=== PATIENT | female | born 1975 | race Caucasian/White ===

== ENCOUNTER 2018-12-18 22:58 | Emergency (ER) | payer MEDICAID ==
[2018-12-18 23:10] VITALS: BP 144/90
--- NOTE | 2018-12-18 23:14 | EDM.PDOC ---
ED HPI GENERAL MEDICAL PROBLEM - General Chief Complaint: ENT Problem Stated Complaint: SORE THROAT Time Seen by Provider: 12/18/18 23:10 Source of Information: Reports: Patient History Limitations: Reports: No Limitations - History of Present Illness INITIAL COMMENTS - FREE TEXT/NARRATIVE: 43-year-old female whose son has had strep recently, she has a mild sore throat and wants to be tested before she goes to work tomorrow. Onset: Gradual Duration: Day(s): (Symptoms for 2 days) Associated Symptoms: Denies: Fever/Chills, Nausea/Vomiting, Shortness of Breath throat Pain Score (Numeric/FACES): 3 - Related Data Allergies Allergy/AdvReac Type Severity Reaction Status Date / Time Sulfa (Sulfonamide Allergy Severe Cannot Verified 12/18/18 23:08 Antibiotics) Remember amoxicillin [Amoxicillin] Allergy Cannot Verified 12/18/18 23:08 Remember cephalexin monohydrate Allergy Cannot Verified 12/18/18 23:08 [From Keflex] Remember Penicillins Allergy Cannot Verified 12/18/18 23:08 Remember Home Meds: Home Meds NK [No Known Home Meds] 12/18/18 [History] Past Medical History - Past Health History Medical/Surgical History: Denies Medical/Surgical History ED ROS ENT - Review of Systems Review Of Systems: See Below Constitutional: Denies: Fever, Chills HEENT: Reports: Throat Pain Respiratory: Denies: Shortness of Breath, Cough Cardiovascular: Denies: Chest Pain GI/Abdominal: Denies: Abdominal Pain, Nausea, Vomiting Skin: Reports: No Symptoms Neurological: Reports: No Symptoms ED EXAM, ENT - Physical Exam Exam: See Below Exam Limited By: No Limitations General Appearance: Alert, No Apparent Distress Mouth/Throat: Pharyngeal Erythema, Uvular Edema, Other (Also uvular erythema) Head: Atraumatic Neck: No: Lymphadenopathy (R), Lymphadenopathy (L) Respiratory/Chest: No Respiratory Distress Course - Vital Signs Last Recorded V/S: Last Vital Signs Temp 97.6 F 12/18/18 23:20 Pulse 95 12/18/18 23:20 Resp 16 12/18/18 23:20 BP 144/90 H 12/18/18 23:20 Pulse Ox 98 12/18/18 23:20 - Orders/Labs/Meds Orders: Active Orders 24 hr Category Date Time Status CULTURE STREP A CONFIRMATION [RM] Routine Lab 12/18/18 23:13 Results STREP SCRN A RAPID W CULT CONF [RM] Routine Lab 12/18/18 23:13 Results - Re-Assessments/Exams Free Text/Narrative Re-Assessment/Exam: 12/19/18 00:16 Rapid strep was negative. No treatment necessary at this time but the patient will be informed if the culture result is positive. Departure - Departure Time of Disposition: 23:35 Disposition: Home, Self-Care 01 Condition: Good Clinical Impression: Pharyngitis Qualifiers: Pharyngitis/tonsillitis etiology: unspecified etiology Qualified Code(s): J02.9 - Acute pharyngitis, unspecified - Discharge Information Instructions: Pharyngitis, [id number] Referrals: PCP,None [Primary Care Provider] - Forms: ED Department Discharge Care Plan Goals: Stay hydrated, increase diet and activity as tolerated. Consider rechecking in 3 -4 days if not improving satisfactorily. Ibuprofen or lozenges may help with pain. - My Orders Last 24 Hours: My Active Orders 12/18/18 23:13 CULTURE STREP A CONFIRMATION [RM] Routine STREP SCRN A RAPID W CULT CONF [RM] Routine - Assessment/Plan Last 24 Hours: My Active Orders 12/18/18 23:13 CULTURE STREP A CONFIRMATION [RM] Routine STREP SCRN A RAPID W CULT CONF [RM] Routine
== END 2018-12-18 23:35 | disposition home or self-care (01) ==
LOC: JP.ED 22:58
DX: J02.9 Acute pharyngitis, unspecified (principal); Z20.818 Contact with and (suspected) exposure to other bacterial communicable diseases; Z88.2 Allergy status to sulfonamides; Z88.1 Allergy status to other antibiotic agents; Z88.0 Allergy status to penicillin
CPT/HCPCS: 87081; 87430; 99283

== ENCOUNTER 2022-12-03 09:45 | Emergency (ER) | payer MEDICAID ==
[2022-12-03] MEDS ORDERED: Sodium Chloride 0.9% 10 ML Syringe FLUSH PRN ×2 (10:17→10:37)
[2022-12-03] MEDS ORDERED: HYDROmorphone 0.5 MG/0.5 ML Syringe IVPUSH ONE (10:21)
[2022-12-03] MEDS ORDERED: Sodium Chloride 0.9% 1,000 ML IV ONE (10:21)
[2022-12-03] MEDS ORDERED: Clindamycin in 0.9 % Sod Chlor 600 MG in Premix Bag 1 BAG IV ONE ×2 (10:22)
[2022-12-03] MEDS ORDERED: Clindamycin in 0.9 % Sod Chlor 300 MG in Premix Bag 1 BAG IV ONE ×2 (10:25)
[2022-12-03] MEDS ORDERED: Clindamycin Phosphate in D5W 900 MG in Premix Bag 1 BAG IV ONE ×2 (10:32)
[2022-12-03] MEDS ORDERED: Sodium Chloride 0.9% 50 ML IV ONE (10:37)
[2022-12-03] MEDS ORDERED: Iopamidol 612 MG/ML 100 ML Bottle IV PRN (10:37)
[2022-12-03 11:10] VITALS: BP 147/108; PULSE 111
== END 2022-12-03 12:18 | disposition home or self-care (01) ==
LOC: JP.ED 09:45
DX: L03.211 Cellulitis of face (principal); K04.7 Periapical abscess without sinus; R25.2 Cramp and spasm; Z88.2 Allergy status to sulfonamides; Z88.0 Allergy status to penicillin; Z88.1 Allergy status to other antibiotic agents; Z72.0 Tobacco use; Z20.822 Contact with and (suspected) exposure to COVID-19
CPT/HCPCS: 36415; 70491; 80048; 85025; 86140; 87040; 87635; 96365; 96375; 99284; J1170; J3490; J7030; Q9967; 99283; U0002

== ENCOUNTER 2023-02-11 16:53 | Emergency (ER) | payer MEDICAID ==
[2023-02-11 17:08] VITALS: PULSE 118
[2023-02-11] MEDS ORDERED: Sodium Chloride 0.9% 10 ML Syringe FLUSH PRN (18:37)
[2023-02-11] MEDS ORDERED: Ondansetron 4 MG/2 ML SDV IVPUSH ONE (18:38)
[2023-02-11] MEDS ORDERED: Pantoprazole 40 MG Vial IVPUSH ONE (18:47)
[2023-02-11 18:49] LABS: BASOPHILS ABSOLUTE AUTO 0.06 K/uL (0.00-0.10); BASOPHILS PERCENT AUTO 0.6 % (0.1-1.3); HEMATOCRIT 51.2 % (34.3-46.0); HEMOGLOBIN 16.9 g/dL (11.2-15.5); IMMATURE GRAN ABSOLUTE AUTO 0.04 K/uL (0.00-0.23); IMMATURE GRAN PERCENT AUTO 0.4 % (0.0-0.7); LYMPHOCYTES ABSOLUTE AUTO 3.88 K/uL (0.8-3.3); LYMPHOCYTES PERCENT AUTO 38.8 % (11.4-47.7); MEAN CORPUSCULAR HEMOGLOBIN 27.2 pg (31.6-35.5); MEAN CORPUSCULAR VOLUME 82.4 fL (81.4-99.0); MONOCYTES ABSOLUTE AUTO 0.62 K/uL (0.20-0.90); MONOCYTES PERCENT AUTO 6.2 % (3.3-12.6); NEUTROPHILS ABSOLUTE AUTO 5.31 K/uL (1.0-7.6); PLATELET COUNT,PLT 224 K/uL (130-375); RED BLOOD CELL COUNT 6.21 M/uL (3.77-5.24)
[2023-02-11 19:08] LABS: INR 1.1; PROTHROMBIN TIME 10.7 sec (9.2-10.6); PTT,PARTIAL THROMBOPLSTIN TIME 23.3 sec (21.8-27.3)
[2023-02-11 19:13] LABS: A/G RATIO 0.9 (1.2-2.2); ALANINE AMINOTRANSFERASE,ALT 53 U/L (12-78); ALBUMIN 2.9 g/dL (3.4-5.0); ALKALINE PHOSPHATASE 84 U/L (46-116); ASPARTATE AMNIOTRANSFERASE,AST 45 U/L (15-37); BILIRUBIN TOTAL 0.7 mg/dL (0.2-1.0); BLOOD UREA NITROGEN,BUN 18 mg/dL (7-18); CALCIUM 8.5 mg/dL (8.5-10.1); CARBON DIOXIDE,CO2 26 mmol/L (21-32); CHLORIDE,CL 105 mmol/L (100-108); CREATININE 1.1 mg/dL (0.6-1.0); ESTIMATED GFR 63 mL/min (>60); GLUCOSE RANDOM 101 mg/dL (74-106); POTASSIUM,K 4.1 mmol/L (3.6-5.2); PROTEIN TOTAL,TP 6.3 g/dL (6.4-8.2); SODIUM,NA 137 mmol/L (140-148)
[2023-02-11 19:14] LABS: ANION GAP 10.1 mmol/L (5.0-14.0)
[2023-02-11 19:41] LABS: TROPONIN I HIGH SENSITIVITY 69.7 pg/mL (<=60.3)
[2023-02-11] MEDS ORDERED: Furosemide 20 MG Tab PO ONE (19:55)
[2023-02-11] MEDS ORDERED: Lisinopril 2.5 MG Tab PO SCH (20:00)
[2023-02-11] MEDS ORDERED: Lisinopril 5 MG Tab ONE (20:07)
[2023-02-11 20:11] VITALS: BP 143/108
== END 2023-02-11 21:52 | disposition home or self-care (01) ==
LOC: JP.ED 16:53
DX: R06.02 Shortness of breath (principal); R60.0 Localized edema; R79.1 Abnormal coagulation profile; R74.8 Abnormal levels of other serum enzymes; E88.09 Other disorders of plasma-protein metabolism, not elsewhere classified; R03.0 Elevated blood-pressure reading, without diagnosis of hypertension; F17.210 Nicotine dependence, cigarettes, uncomplicated; Z88.0 Allergy status to penicillin; Z88.2 Allergy status to sulfonamides; Z88.1 Allergy status to other antibiotic agents; Z79.899 Other long term (current) drug therapy; Z20.822 Contact with and (suspected) exposure to COVID-19
CPT/HCPCS: 36415; 71045; 80053; 83880; 84145; 84443; 84484; 85025; 85379; 85610; 85730; 87635; 93005; 93971; 96374; 96375; 99284; A9270; C9113; J2405; J3490; U0002

== ENCOUNTER 2023-04-29 19:13 | Inpatient (IN) | payer MEDICAID ==
[2023-04-29 20:10] LABS: BASOPHILS ABSOLUTE AUTO 0.07 K/uL (0.00-0.10); BASOPHILS PERCENT AUTO 0.6 % (0.1-1.3); EOSINOPHILS PERCENT AUTO 0.9 % (0.0-5.4); HEMATOCRIT 55.6 % (34.3-46.0); IMMATURE GRAN ABSOLUTE AUTO 0.04 K/uL (0.00-0.23); IMMATURE GRAN PERCENT AUTO 0.3 % (0.0-0.7); LYMPHOCYTES ABSOLUTE AUTO 3.39 K/uL (0.8-3.3); LYMPHOCYTES PERCENT AUTO 28.8 % (11.4-47.7); MEAN CORPUSCULAR HEMOGLOBIN 28.3 pg (31.6-35.5); MEAN CORPUSCULAR HGB CONC 33.3 g/dL (31.6-35.5); MEAN CORPUSCULAR VOLUME 85.1 fL (81.4-99.0); MONOCYTES ABSOLUTE AUTO 0.72 K/uL (0.20-0.90); MONOCYTES PERCENT AUTO 6.1 % (3.3-12.6); NEUTROPHILS ABSOLUTE AUTO 7.44 K/uL (1.0-7.6); NEUTROPHILS PERCENT AUTO 63.3 % (40.0-78.1); PLATELET COUNT,PLT 206 K/uL (130-375); RED BLOOD CELL COUNT 6.53 M/uL (3.77-5.24); WHITE BLOOD CELL COUNT,WBC 11.8 K/uL (3.2-11.0)
[2023-04-29 20:19] LABS: HEMOGLOBIN 18.5 g/dL (11.2-15.5)
[2023-04-29] MEDS ORDERED: Metolazone 2.5 MG Tab PO ONE (20:33)
[2023-04-29 20:38] LABS: A/G RATIO 0.8 (1.2-2.2); ALANINE AMINOTRANSFERASE,ALT 46 U/L (12-78); ALBUMIN 2.8 g/dL (3.4-5.0); ALKALINE PHOSPHATASE 107 U/L (46-116); ASPARTATE AMNIOTRANSFERASE,AST 45 U/L (15-37); BILIRUBIN TOTAL 2.4 mg/dL (0.2-1.0); BLOOD UREA NITROGEN,BUN 11 mg/dL (7-18); CALCIUM 8.4 mg/dL (8.5-10.1); CARBON DIOXIDE,CO2 22 mmol/L (21-32); CHLORIDE,CL 104 mmol/L (100-108); EST CRCL DRUG DOSING (CG) 63.25 mL/min; ESTIMATED GFR 70 mL/min (>60); GLUCOSE RANDOM 143 mg/dL (74-106); POTASSIUM,K 4.4 mmol/L (3.6-5.2); PRO B-TYPE NATRIUR PEPT,BNPPRO 4516 pg/mL (5-125); PROTEIN TOTAL,TP 6.2 g/dL (6.4-8.2); SODIUM,NA 138 mmol/L (140-148); TROPONIN I HIGH SENSITIVITY 15.8 pg/mL (<=60.3)
[2023-04-29 20:39] LABS: ANION GAP 16.4 mmol/L (5.0-14.0)
[2023-04-29] MEDS ORDERED: Bumetanide 2.5 MG/10 ML MDV IVPUSH SCH (20:45)
[2023-04-29] MEDS: Carvedilol 3.125 MG Tab PO SCH (21:11)
[2023-04-29] MEDS: Sacubitril/Valsartan 24 MG-26 MG Tab PO SCH (21:12)
[2023-04-29 22:43] LABS: BILIRUBIN,URINE NEGATIVE (NEGATIVE); COLOR,URINE YELLOW (YELLOW); GLUCOSE,URINE NEGATIVE (NEGATIVE); KETONES,URINE NEGATIVE (NEGATIVE); LEUKOCYTE ESTERASE,URINE TRACE (NEGATIVE); NITRITE,URINE NEGATIVE (NEGATIVE); OCCULT BLOOD,URINE TRACE-LYSED (NEGATIVE); PH,URINE 5.5 (5.0-8.0); PROTEIN,URINE NEGATIVE (NEGATIVE); UROBILINOGEN,URINE 0.2 EU/dL (0.2-1.0)
[2023-04-29 22:47] LABS: THC SCREEN,URINE 50 NG/ML PRESUMPTIVE POSITIVE (NEGATIVE)
[2023-04-29 22:48] LABS: AMORPHOUS SEDIMENT,URINE NOT SEEN; AMPHETAMINES SCREEN, URINE NEGATIVE (NEGATIVE); APPEARANCE,URINE SLIGHTLY CLOUDY (CLEAR); BACTERIA,URINE MANY; BARBITURATE SCREEN,URINE NEGATIVE (NEGATIVE); BENZODIAZEPINES SCREEN,URINE NEGATIVE (NEGATIVE); EPITHELIAL CELLS,URINE RARE; METHADONE SCREEN, URINE NEGATIVE (NEGATIVE); METHAMPHETAMINES SCREEN, URINE NEGATIVE (NEGATIVE); MUCUS,URINE NOT SEEN; OXYCODONE SCREEN,URINE NEGATIVE (NEGATIVE); PROPOXYPHENE SCREEN,URINE NEGATIVE (NEGATIVE); RBC,URINE 0-5 (0-5)
[2023-04-29] MEDS ORDERED: Acetaminophen 325 MG Tab PO PRN (23:04)
[2023-04-29] MEDS ORDERED: Morphine 2 MG/ML SYRINGE IVPUSH PRN (23:04)
[2023-04-29] MEDS ORDERED: Ondansetron 4 MG Tab.DIS PO PRN (23:04)
[2023-04-29] MEDS ORDERED: oxyCODONE 5 MG Tab PO PRN (23:04)
[2023-04-29] MEDS ORDERED: Bisacodyl 5 MG Tab PO PRN (23:04)
[2023-04-29] MEDS ORDERED: Ondansetron 4 MG/2 ML SDV IV PRN (23:04)
[2023-04-29] MEDS ORDERED: Naloxone 0.4 MG/ML SDV IVPUSH PRN (23:04)
[2023-04-29] MEDS ORDERED: Sodium Chloride 0.9% 10 ML Syringe FLUSH PRN (23:04)
[2023-04-29] MEDS ORDERED: Docusate Sodium 100 MG Cap PO PRN (23:04)
[2023-04-29 23:12] LABS: LYME AB IgG Negative (Negative)
[2023-04-29 23:15] LABS: LYME AB IgM Negative (Negative)
[2023-04-30 04:40] LABS: BASOPHILS ABSOLUTE AUTO 0.09 K/uL (0.00-0.10); BASOPHILS PERCENT AUTO 0.7 % (0.1-1.3); EOSINOPHILS ABSOLUTE AUTO 0.19 K/uL (0.00-0.40); EOSINOPHILS PERCENT AUTO 1.5 % (0.0-5.4); HEMATOCRIT 55.5 % (34.3-46.0); IMMATURE GRAN ABSOLUTE AUTO 0.03 K/uL (0.00-0.23); IMMATURE GRAN PERCENT AUTO 0.2 % (0.0-0.7); LYMPHOCYTES ABSOLUTE AUTO 4.65 K/uL (0.8-3.3); MEAN CORPUSCULAR HEMOGLOBIN 28.2 pg (31.6-35.5); MEAN CORPUSCULAR HGB CONC 33.3 g/dL (31.6-35.5); MEAN CORPUSCULAR VOLUME 84.7 fL (81.4-99.0); MONOCYTES ABSOLUTE AUTO 0.93 K/uL (0.20-0.90); MONOCYTES PERCENT AUTO 7.2 % (3.3-12.6); NEUTROPHILS ABSOLUTE AUTO 7.03 K/uL (1.0-7.6); NEUTROPHILS PERCENT AUTO 54.4 % (40.0-78.1); PLATELET COUNT,PLT 205 K/uL (130-375); RED BLOOD CELL COUNT 6.55 M/uL (3.77-5.24); WHITE BLOOD CELL COUNT,WBC 12.9 K/uL (3.2-11.0)
[2023-04-30 05:01] LABS: A/G RATIO 0.8 (1.2-2.2); ALANINE AMINOTRANSFERASE,ALT 37 U/L (12-78); ALBUMIN 2.5 g/dL (3.4-5.0); ALKALINE PHOSPHATASE 93 U/L (46-116); ANION GAP 7.9 mmol/L (5.0-14.0); ASPARTATE AMNIOTRANSFERASE,AST 35 U/L (15-37); BILIRUBIN TOTAL 2.5 mg/dL (0.2-1.0); BLOOD UREA NITROGEN,BUN 10 mg/dL (7-18); CALCIUM 8.4 mg/dL (8.5-10.1); CARBON DIOXIDE,CO2 29 mmol/L (21-32); CHLORIDE,CL 103 mmol/L (100-108); CREATININE 0.9 mg/dL (0.6-1.0); EST CRCL DRUG DOSING (CG) 70.28 mL/min; ESTIMATED GFR 80 mL/min (>60); GLUCOSE RANDOM 97 mg/dL (74-106); POTASSIUM,K 3.9 mmol/L (3.6-5.2); PROTEIN TOTAL,TP 5.6 g/dL (6.4-8.2); SODIUM,NA 140 mmol/L (140-148)
[2023-04-30 05:27] LABS: HEMOGLOBIN 18.5 g/dL (11.2-15.5)
[2023-04-30 08:36] LABS: INR 1.2; PROTHROMBIN TIME 12.1 sec (9.2-10.6)
[2023-04-30] MEDS: Carvedilol 3.125 MG Tab PO SCH ×2 (09:59→21:04)
[2023-04-30] MEDS: Aspirin 81 MG Tab.Chew PO SCH (09:59)
[2023-04-30] MEDS: Bumetanide 1 MG/4 ML MDV IVPUSH SCH ×2 (09:59→21:04)
[2023-04-30] MEDS: Sacubitril/Valsartan 24 MG-26 MG Tab PO SCH ×2 (09:59→21:04)
[2023-04-30] MEDS: Pantoprazole 40 MG Vial IV SCH (09:59)
[2023-04-30 17:23] LABS: CALCIUM 8.2 mg/dL (8.5-10.1); CREATININE 1.1 mg/dL (0.6-1.0); EST CRCL DRUG DOSING (CG) 57.5 mL/min
[2023-05-01 04:20] LABS: BASOPHILS ABSOLUTE AUTO 0.08 K/uL (0.00-0.10); BASOPHILS PERCENT AUTO 0.7 % (0.1-1.3); EOSINOPHILS ABSOLUTE AUTO 0.21 K/uL (0.00-0.40); EOSINOPHILS PERCENT AUTO 1.8 % (0.0-5.4); HEMATOCRIT 56.3 % (34.3-46.0); IMMATURE GRAN ABSOLUTE AUTO 0.03 K/uL (0.00-0.23); IMMATURE GRAN PERCENT AUTO 0.3 % (0.0-0.7); LYMPHOCYTES PERCENT AUTO 38.6 % (11.4-47.7); MEAN CORPUSCULAR HEMOGLOBIN 27.7 pg (31.6-35.5); MEAN CORPUSCULAR VOLUME 83.9 fL (81.4-99.0); MONOCYTES ABSOLUTE AUTO 0.99 K/uL (0.20-0.90); MONOCYTES PERCENT AUTO 8.5 % (3.3-12.6); NEUTROPHILS ABSOLUTE AUTO 5.85 K/uL (1.0-7.6); NEUTROPHILS PERCENT AUTO 50.1 % (40.0-78.1); PLATELET COUNT,PLT 195 K/uL (130-375); RED BLOOD CELL COUNT 6.71 M/uL (3.77-5.24); WHITE BLOOD CELL COUNT,WBC 11.7 K/uL (3.2-11.0)
[2023-05-01 04:35] LABS: CREATININE 1.2 mg/dL (0.6-1.0); EST CRCL DRUG DOSING (CG) 52.71 mL/min; POTASSIUM,K 3.4 mmol/L (3.6-5.2)
[2023-05-01 05:22] LABS: ANION GAP 10.4 mmol/L (5.0-14.0)
[2023-05-01 06:37] LABS: HEMOGLOBIN 18.6 g/dL (11.2-15.5)
[2023-05-01] MEDS ORDERED: Potassium Chloride 20 MEQ Tab.ER PO ONE ×2 (09:00→12:00)
[2023-05-01] MEDS: Bumetanide 1 MG/4 ML MDV IVPUSH SCH (09:16)
[2023-05-01] MEDS: Pantoprazole 40 MG Vial IV SCH (09:16)
[2023-05-01] MEDS: Aspirin 81 MG Tab.Chew PO SCH (09:17)
[2023-05-01] MEDS: Sacubitril/Valsartan 24 MG-26 MG Tab PO SCH ×2 (09:17→20:08)
[2023-05-01] MEDS: Carvedilol 3.125 MG Tab PO SCH ×2 (10:19→20:11)
[2023-05-01] MEDS ORDERED: guaiFENesin/Dextromethorphan 100-10 MG/5 ML Soln 10 ML Cup PO PRN (10:23)
[2023-05-02 04:39] LABS: BASOPHILS ABSOLUTE AUTO 0.09 K/uL (0.00-0.10); BASOPHILS PERCENT AUTO 0.7 % (0.1-1.3); EOSINOPHILS PERCENT AUTO 1.7 % (0.0-5.4); HEMATOCRIT 56.5 % (34.3-46.0); IMMATURE GRAN ABSOLUTE AUTO 0.03 K/uL (0.00-0.23); IMMATURE GRAN PERCENT AUTO 0.2 % (0.0-0.7); LYMPHOCYTES ABSOLUTE AUTO 4.61 K/uL (0.8-3.3); LYMPHOCYTES PERCENT AUTO 38.3 % (11.4-47.7); MEAN CORPUSCULAR HEMOGLOBIN 27.9 pg (31.6-35.5); MEAN CORPUSCULAR HGB CONC 33.1 g/dL (31.6-35.5); MEAN CORPUSCULAR VOLUME 84.3 fL (81.4-99.0); MONOCYTES ABSOLUTE AUTO 0.98 K/uL (0.20-0.90); MONOCYTES PERCENT AUTO 8.1 % (3.3-12.6); NEUTROPHILS ABSOLUTE AUTO 6.12 K/uL (1.0-7.6); PLATELET COUNT,PLT 215 K/uL (130-375)
[2023-05-02 04:55] LABS: EST CRCL DRUG DOSING (CG) 63.25 mL/min; POTASSIUM,K 3.8 mmol/L (3.6-5.2)
[2023-05-02 05:06] LABS: HEMOGLOBIN 18.7 g/dL (11.2-15.5)
[2023-05-02 05:07] LABS: ANION GAP 10.8 mmol/L (5.0-14.0)
[2023-05-02] MEDS: Pantoprazole 40 MG Vial IV SCH (09:30)
[2023-05-02 11:11] VITALS: BP 96/62; PULSE 100
[2023-05-02] MEDS: Sacubitril/Valsartan 24 MG-26 MG Tab PO SCH (11:48)
[2023-05-02] MEDS: Aspirin 81 MG Tab.Chew PO SCH (11:49)
[2023-05-02] MEDS: Carvedilol 3.125 MG Tab PO SCH (11:49)
[2023-05-02] MEDS: Bumetanide 1 MG/4 ML MDV IVPUSH SCH (12:35)
== END 2023-05-02 12:45 | disposition home or self-care (01) | DRG 291 ==
LOC: JP.ED 19:13 → JP.MS 22:50
PROVIDERS: ADMIT Hospitalist; ATTEND Hospitalist
DX: I11.0 Hypertensive heart disease with heart failure (principal); I50.23 Acute on chronic systolic (congestive) heart failure; I50.82 Biventricular heart failure; F17.210 Nicotine dependence, cigarettes, uncomplicated; I27.20 Pulmonary hypertension, unspecified; R21 Rash and other nonspecific skin eruption; Z20.822 Contact with and (suspected) exposure to COVID-19; I07.1 Rheumatic tricuspid insufficiency; Z86.16 Personal history of COVID-19; Z88.2 Allergy status to sulfonamides; Z88.1 Allergy status to other antibiotic agents; Z88.8 Allergy status to other drugs, medicaments and biological substances; Z88.0 Allergy status to penicillin; Z87.440 Personal history of urinary (tract) infections; Z87.81 Personal history of (healed) traumatic fracture; Z98.51 Tubal ligation status
CPT/HCPCS: 36415; 71046; 71046-26; 80048; 80053; 80305-QW; 81001; 83880; 84484; 85025; 85027; 85610; 86618; 93005; 93306; 96374; 99222; 99232; 99238; 99285-25; A9270-GY; C9113; J3490; U0002

== ENCOUNTER 2023-05-03 01:13 | Emergency (ER) | payer MEDICAID ==
[2023-05-03] MEDS ORDERED: Sodium Chloride 0.9% 10 ML Syringe FLUSH PRN (01:44)
[2023-05-03] MEDS ORDERED: Ondansetron 4 MG/2 ML SDV IVPUSH ONE ×2 (01:46→01:50)
[2023-05-03 01:51] LABS: BASOPHILS ABSOLUTE AUTO 0.08 K/uL (0.00-0.10); BASOPHILS PERCENT AUTO 0.5 % (0.1-1.3); EOSINOPHILS PERCENT AUTO 0.7 % (0.0-5.4); HEMATOCRIT 59.8 % (34.3-46.0); IMMATURE GRAN ABSOLUTE AUTO 0.08 K/uL (0.00-0.23); IMMATURE GRAN PERCENT AUTO 0.5 % (0.0-0.7); LYMPHOCYTES PERCENT AUTO 22.1 % (11.4-47.7); MEAN CORPUSCULAR HEMOGLOBIN 28.3 pg (31.6-35.5); MEAN CORPUSCULAR HGB CONC 33.1 g/dL (31.6-35.5); MEAN CORPUSCULAR VOLUME 85.6 fL (81.4-99.0); MONOCYTES ABSOLUTE AUTO 0.68 K/uL (0.20-0.90); MONOCYTES PERCENT AUTO 4.6 % (3.3-12.6); NEUTROPHILS ABSOLUTE AUTO 10.66 K/uL (1.0-7.6); NEUTROPHILS PERCENT AUTO 71.6 % (40.0-78.1); PLATELET COUNT,PLT 237 K/uL (130-375); RED BLOOD CELL COUNT 6.99 M/uL (3.77-5.24); WHITE BLOOD CELL COUNT,WBC 14.9 K/uL (3.2-11.0)
[2023-05-03 01:53] LABS: HEMOGLOBIN 19.8 g/dL (11.2-15.5)
[2023-05-03] MEDS ORDERED: Sodium Chloride 0.9% 1,000 ML IV SCH (02:00)
[2023-05-03 02:12] LABS: A/G RATIO 0.9 (1.2-2.2); ALANINE AMINOTRANSFERASE,ALT 31 U/L (12-78); ALBUMIN 3.2 g/dL (3.4-5.0); ALKALINE PHOSPHATASE 93 U/L (46-116); ASPARTATE AMNIOTRANSFERASE,AST 31 U/L (15-37); BILIRUBIN TOTAL 2.1 mg/dL (0.2-1.0); BLOOD UREA NITROGEN,BUN 23 mg/dL (7-18); CALCIUM 8.6 mg/dL (8.5-10.1); CARBON DIOXIDE,CO2 31 mmol/L (21-32); CHLORIDE,CL 97 mmol/L (100-108); CREATININE 1.5 mg/dL (0.6-1.0); EST CRCL DRUG DOSING (CG) 42.17 mL/min; ESTIMATED GFR 43 mL/min (>60); GLUCOSE RANDOM 146 mg/dL (74-106); POTASSIUM,K 4.9 mmol/L (3.6-5.2); PROTEIN TOTAL,TP 6.8 g/dL (6.4-8.2); SODIUM,NA 136 mmol/L (140-148)
[2023-05-03 02:13] LABS: ANION GAP 12.9 mmol/L (5.0-14.0)
[2023-05-03] MEDS ORDERED: Iopamidol 755 Mg/ML 100 ML Bottle IV ONE (02:45)
[2023-05-03] MEDS ORDERED: Sodium Chloride 0.9% 75 ML IV SCH (02:45)
[2023-05-03] MEDS ORDERED: Carvedilol 3.125 MG Tab PO SCH ×2 (06:45→09:00)
[2023-05-03] MEDS ORDERED: Furosemide 20 MG Tab PO SCH ×2 (06:45→09:00)
[2023-05-03] MEDS ORDERED: Sacubitril/Valsartan 24 MG-26 MG Tab PO SCH ×2 (06:45→09:00)
[2023-05-03 07:22] LABS: IRON,FE 103 ug/dL (50-170); PERCENT FE SATURATION 27 % (20-55); TOTAL IRON BINDING CAPACITY 375 ug/dl (250-450)
[2023-05-03 09:10] VITALS: BP 106/80; PULSE 99
== END 2023-05-03 10:22 | disposition home or self-care (01) ==
LOC: JP.ED 01:13
DX: I27.20 Pulmonary hypertension, unspecified (principal); I11.0 Hypertensive heart disease with heart failure; I50.20 Unspecified systolic (congestive) heart failure; F17.200 Nicotine dependence, unspecified, uncomplicated; Z79.899 Other long term (current) drug therapy; Z88.0 Allergy status to penicillin; Z88.2 Allergy status to sulfonamides; Z88.1 Allergy status to other antibiotic agents; Z88.8 Allergy status to other drugs, medicaments and biological substances; Z20.822 Contact with and (suspected) exposure to COVID-19
CPT/HCPCS: 36415; 71045; 71275; 80053; 82728; 83550; 83605; 83880; 84484; 85025; 85379; 87635; 93005; 96361; 96374; 99284; A9270; J2405; J3490; J7030; Q9967; U0002

== ENCOUNTER 2023-09-16 14:18 | Emergency (ER) | payer MEDICAID ==
[2023-09-16 14:45] LABS: BASE EXCESS ARTERIAL -4.7 mm/L; BICARBONATE,ARTERIAL 17.1 mmol/L (22.0-26.0); METHEMOGLOBIN 0.8 %; O2 SATURATION ARTERIAL 94.8 % (95.0-98.0); OXYHEMOGLOBIN 92.1 %; PCO2 ARTERIAL 26.1 mmHg (35.0-42.0); PO2 ARTERIAL 79.5 mmHg (75.0-100.0); TOTAL HEMOGLOBIN 19.5 g/dL (12.0-16.0)
[2023-09-16] MEDS: Ondansetron 4 MG/2 ML SDV IVPUSH ONE (14:55)
[2023-09-16 15:00] LABS: BASOPHILS ABSOLUTE AUTO 0.06 K/uL (0.00-0.10); BASOPHILS PERCENT AUTO 0.4 % (0.1-1.3); EOSINOPHILS ABSOLUTE AUTO 0.05 K/uL (0.00-0.40); EOSINOPHILS PERCENT AUTO 0.4 % (0.0-5.4); HEMATOCRIT 58.8 % (34.3-46.0); IMMATURE GRAN ABSOLUTE AUTO 0.07 K/uL (0.00-0.23); IMMATURE GRAN PERCENT AUTO 0.5 % (0.0-0.7); LYMPHOCYTES ABSOLUTE AUTO 3.07 K/uL (0.8-3.3); LYMPHOCYTES PERCENT AUTO 21.9 % (11.4-47.7); MEAN CORPUSCULAR HEMOGLOBIN 28.6 pg (31.6-35.5); MEAN CORPUSCULAR HGB CONC 32.8 g/dL (31.6-35.5); MONOCYTES ABSOLUTE AUTO 0.81 K/uL (0.20-0.90); MONOCYTES PERCENT AUTO 5.8 % (3.3-12.6); NEUTROPHILS ABSOLUTE AUTO 9.94 K/uL (1.0-7.6); PLATELET COUNT,PLT 211 K/uL (130-375); RED BLOOD CELL COUNT 6.76 M/uL (3.77-5.24)
[2023-09-16 15:02] LABS: HEMOGLOBIN 19.3 g/dL (11.2-15.5)
[2023-09-16 15:16] LABS: A/G RATIO 0.9 (1.2-2.2); ALANINE AMINOTRANSFERASE,ALT 36 U/L (12-78); ALBUMIN 2.9 g/dL (3.4-5.0); ALKALINE PHOSPHATASE 101 U/L (46-116); ASPARTATE AMNIOTRANSFERASE,AST 58 U/L (15-37); BILIRUBIN DIRECT 0.74 mg/dL (0.0-0.2); BILIRUBIN INDIRECT 3.26; BLOOD UREA NITROGEN,BUN 22 mg/dL (7-18); CALCIUM 9.2 mg/dL (8.5-10.1); CARBON DIOXIDE,CO2 19 mmol/L (21-32); CHLORIDE,CL 104 mmol/L (100-108); ESTIMATED GFR 70 mL/min (>60); GLUCOSE RANDOM 90 mg/dL (74-106); MAGNESIUM 1.7 mg/dL (1.8-2.4); PHOSPHORUS 4.8 mg/dL (2.5-4.9); POTASSIUM,K 4.6 mmol/L (3.6-5.2); PRO B-TYPE NATRIUR PEPT,BNPPRO 5857 pg/mL (5-125); PROTEIN TOTAL,TP 6.2 g/dL (6.4-8.2); SODIUM,NA 137 mmol/L (140-148)
[2023-09-16 15:17] LABS: ANION GAP 18.6 mmol/L (5.0-14.0)
[2023-09-16 15:19] LABS: TROPONIN I HIGH SENSITIVITY 155.3 pg/mL (<=60.3)
[2023-09-16 15:22] LABS: INR 1.5; PROTHROMBIN TIME 14.6 sec (9.2-10.6); PTT,PARTIAL THROMBOPLSTIN TIME 24.1 sec (21.8-27.3)
[2023-09-16] MEDS: Ketorolac 30 MG/ML SDV IVPUSH ONE (15:47)
[2023-09-16] MEDS: Bumetanide 1 MG Tab PO ONE (16:13)
[2023-09-16 16:14] LABS: CORONAVIRUS COVID-19 NAA NEGATIVE (NEGATIVE); INFLUENZA A NAA NEGATIVE (NEGATIVE); INFLUENZA B NAA NEGATIVE (NEGATIVE); RESPIRATORY SYNCYTIAL VIR NAA NEGATIVE (NEGATIVE)
[2023-09-16] MEDS: Bumetanide 2.5 MG/10 ML MDV IVPUSH ONE (16:14)
[2023-09-16] MEDS: Iopamidol 612 MG/ML 100 ML Bottle IV ONE (16:28)
[2023-09-16] MEDS: Sodium Chloride 0.9% 10 ML Syringe FLUSH PRN (16:28)
[2023-09-16] MEDS: Sodium Chloride 0.9% 80 ML IV SCH (16:29)
[2023-09-16] MEDS: Sodium Chloride 0.9% 1,000 ML IV ONE (16:38)
[2023-09-16] MEDS: cefTRIAXone 1 GM in Sodium Chloride 0.9% 50 ML IV ONE (16:51)
[2023-09-16] MEDS: Prochlorperazine 10 MG/2 ML SDV IVPUSH ONE (17:53)
[2023-09-16] MEDS: Sildenafil 20 MG Tab PO STA (18:13)
[2023-09-16] MEDS: Carvedilol 3.125 MG Tab PO ONE (18:13)
[2023-09-16 20:14] VITALS: BP 97/72; PULSE 104
[2023-09-16] MEDS: Acetaminophen 500 MG Tab ONE (20:45)
[2023-09-16] MEDS: Acetaminophen 500 MG Tab PO STA (20:45)
== END 2023-09-16 20:43 ==
LOC: JP.ED 14:18
DX: I21.4 Non-ST elevation (NSTEMI) myocardial infarction (principal); A41.9 Sepsis, unspecified organism; R65.20 Severe sepsis without septic shock; J96.10 Chronic respiratory failure, unspecified whether with hypoxia or hypercapnia; I50.9 Heart failure, unspecified; F17.210 Nicotine dependence, cigarettes, uncomplicated; Z79.899 Other long term (current) drug therapy; Z88.0 Allergy status to penicillin; Z88.1 Allergy status to other antibiotic agents; Z88.2 Allergy status to sulfonamides
CPT/HCPCS: 0241U; 36415; 36600; 71045; 74177; 80048; 80076; 82803; 83605; 83690; 83735; 83880; 84100; 84145; 84484; 85025; 85610; 85730; 93005; 93010; 96365; 96366; 96367; 96375; 99285; A9270; J0696; J0780; J1885; J2405; J3370; J3490; J7030; J7050; Q9967

== ENCOUNTER 2024-02-05 10:04 | Emergency (ER) | payer MEDICAID ==
[2024-02-05 11:29] LABS: BASOPHILS ABSOLUTE AUTO 0.04 K/uL (0.00-0.10); BASOPHILS PERCENT AUTO 0.4 % (0.1-1.3); EOSINOPHILS ABSOLUTE AUTO 0.08 K/uL (0.00-0.40); EOSINOPHILS PERCENT AUTO 0.8 % (0.0-5.4); HEMATOCRIT 50.6 % (34.3-46.0); HEMOGLOBIN 17.1 g/dL (11.2-15.5); IMMATURE GRAN ABSOLUTE AUTO 0.03 K/uL (0.00-0.23); IMMATURE GRAN PERCENT AUTO 0.3 % (0.0-0.7); LYMPHOCYTES ABSOLUTE AUTO 2.16 K/uL (0.8-3.3); LYMPHOCYTES PERCENT AUTO 20.7 % (11.4-47.7); MEAN CORPUSCULAR HEMOGLOBIN 28.4 pg (31.6-35.5); MEAN CORPUSCULAR HGB CONC 33.8 g/dL (31.6-35.5); MEAN CORPUSCULAR VOLUME 84.1 fL (81.4-99.0); MONOCYTES ABSOLUTE AUTO 0.56 K/uL (0.20-0.90); MONOCYTES PERCENT AUTO 5.4 % (3.3-12.6); NEUTROPHILS ABSOLUTE AUTO 7.55 K/uL (1.0-7.6); NEUTROPHILS PERCENT AUTO 72.4 % (40.0-78.1); PLATELET COUNT,PLT 185 K/uL (130-375); RED BLOOD CELL COUNT 6.02 M/uL (3.77-5.24); WHITE BLOOD CELL COUNT,WBC 10.4 K/uL (3.2-11.0)
[2024-02-05 11:55] LABS: A/G RATIO 0.8 (1.2-2.2); ALANINE AMINOTRANSFERASE,ALT 27 U/L (12-78); ALBUMIN 3.1 g/dL (3.4-5.0); ALKALINE PHOSPHATASE 135 U/L (46-116); ASPARTATE AMNIOTRANSFERASE,AST 29 U/L (15-37); BLOOD UREA NITROGEN,BUN 12 mg/dL (7-18); CALCIUM 8.8 mg/dL (8.5-10.1); CARBON DIOXIDE,CO2 28 mmol/L (21-32); CHLORIDE,CL 101 mmol/L (100-108); CREATININE 0.8 mg/dL (0.6-1.0); EST CRCL DRUG DOSING (CG) 78.23 mL/min; ESTIMATED GFR 91 mL/min (>60); GLUCOSE RANDOM 127 mg/dL (74-106); POTASSIUM,K 3.3 mmol/L (3.6-5.2); PROTEIN TOTAL,TP 6.8 g/dL (6.4-8.2); SODIUM,NA 138 mmol/L (140-148)
[2024-02-05 11:58] LABS: ANION GAP 12.3 mmol/L (5.0-14.0)
[2024-02-05 13:01] VITALS: BP 112/76; PULSE 94
== END 2024-02-05 15:08 | disposition home or self-care (01) ==
LOC: JP.ED 10:04
DX: I27.20 Pulmonary hypertension, unspecified (principal); R55 Syncope and collapse; F17.210 Nicotine dependence, cigarettes, uncomplicated; I50.9 Heart failure, unspecified; Z86.16 Personal history of COVID-19; Z79.899 Other long term (current) drug therapy; Z88.0 Allergy status to penicillin; Z88.8 Allergy status to other drugs, medicaments and biological substances; Z88.1 Allergy status to other antibiotic agents
CPT/HCPCS: 36415; 80053; 83690; 84145; 84484; 85025; 93005; 93010; 99285

== ENCOUNTER 2025-04-29 23:07 | Emergency (ER) | payer SELFPAY ==
[2025-04-29 23:41] LABS: PLATELET COUNT,PLT 178 K/uL (130-375); RED BLOOD CELL COUNT 5.66 M/uL (3.77-5.24); WHITE BLOOD CELL COUNT,WBC 14.9 K/uL (3.2-11.0)
[2025-04-29 23:42] LABS: BASE EXCESS VENOUS 2.1 mm/L; BICARBONATE,VENOUS 26.5 mmol/L; O2 SATURATION VENOUS 61.8; OXYHEMOGLOBIN 58.6 %; PCO2 VENOUS 42.1 mm/Hg; PH,VENOUS 7.415 (7.350-7.450); TOTAL HEMOGLOBIN 17.3 g/dL (12.0-16.0)
[2025-04-29 23:44] LABS: PO2 VENOUS 36.2 mm/Hg
[2025-04-29 23:54] LABS: APPEARANCE,URINE CLOUDY (CLEAR); GLUCOSE,URINE NEGATIVE (NEGATIVE); OCCULT BLOOD,URINE LARGE (NEGATIVE)
[2025-04-29 23:55] LABS: SQUAMOUS EPITHELIAL CELLS,UR NOT SEEN /HPF; UROTHELIAL CELLS,URINE NOT SEEN /HPF
[2025-04-29 23:56] LABS: AMPHETAMINES SCREEN, URINE PRESUMPTIVE POSITIVE (NEGATIVE); METHADONE SCREEN, URINE NEGATIVE (NEGATIVE); METHAMPHETAMINES SCREEN, URINE PRESUMPTIVE POSITIVE (NEGATIVE); OXYCODONE SCREEN,URINE NEGATIVE (NEGATIVE); PROPOXYPHENE SCREEN,URINE NEGATIVE (NEGATIVE); THC SCREEN,URINE 50 NG/ML NEGATIVE (NEGATIVE)
[2025-04-30 00:03] LABS: A/G RATIO 1.1 (1.2-2.2); ALANINE AMINOTRANSFERASE,ALT 40 U/L (12-78); ASPARTATE AMNIOTRANSFERASE,AST 32 U/L (15-37); ATYPICAL LYMPHOCYTES FEW; BAND ABSOLUTE MAN 0.30 K/uL; BAND PERCENT MAN 2 % (5-11); BILIRUBIN TOTAL 0.8 mg/dL (0.2-1.0); BLOOD UREA NITROGEN,BUN 23 mg/dL (7-18); CARBON DIOXIDE,CO2 29 mmol/L (21-32); CHLORIDE,CL 105 mmol/L (100-108); CREATININE 1.4 mg/dL (0.6-1.0); EOSINOPHILS ABSOLUTE MAN 0.30 K/uL (0.00-0.40); EOSINOPHILS PERCENT MAN 2 % (2-4); EST CRCL DRUG DOSING (CG) 44.22 mL/min; ESTIMATED GFR 46 mL/min (>60); GLUCOSE RANDOM 133 mg/dL (74-106); LYMPHOCYTES ABSOLUTE MAN 4.02 K/uL (0.8-3.3); LYMPHOCYTES PERCENT MAN 27 % (24-44); MONOCYTES ABSOLUTE MAN 0.45 K/uL (0.20-0.90); MONOCYTES PERCENT MAN 3 % (2-6); NEUTROPHILS ABSOLUTE MAN 9.83 K/uL (1.0-7.6); POTASSIUM,K 4.3 mmol/L (3.6-5.2); PRO B-TYPE NATRIUR PEPT,BNPPRO 5434 pg/mL (5-125); PROTEIN TOTAL,TP 6.8 g/dL (6.4-8.2); SEG NEUTROPHILS PERCENT MAN 66 % (36-66); SODIUM,NA 142 mmol/L (140-148); TROPONIN I HIGH SENSITIVITY 12.1 pg/mL (<=60.3)
[2025-04-30] MEDS: Bumetanide 1 MG/4 ML MDV IVPUSH ONE (00:40)
[2025-04-30] MEDS ORDERED: Sodium Chloride 0.9% 10 ML Syringe FLUSH PRN (02:53)
[2025-04-30] MEDS ORDERED: Iopamidol 612 MG/ML 100 ML Bottle IV SCH (03:00)
[2025-04-30 05:45] VITALS: BP 150/96; PULSE 83
== END 2025-04-30 05:45 | disposition home or self-care (01) ==
LOC: JP.ED 23:07
DX: N39.0 Urinary tract infection, site not specified (principal); R31.9 Hematuria, unspecified; Z88.2 Allergy status to sulfonamides; Z88.0 Allergy status to penicillin; Z88.1 Allergy status to other antibiotic agents; Z88.8 Allergy status to other drugs, medicaments and biological substances; I50.9 Heart failure, unspecified; Z95.5 Presence of coronary angioplasty implant and graft; F17.210 Nicotine dependence, cigarettes, uncomplicated; Z79.899 Other long term (current) drug therapy
CPT/HCPCS: 36415; 71045; 80053; 80305; 81001; 82803; 83880; 84484; 85025; 87086; 96374; 99285; A9270; J3490; 87088; 87186

== ENCOUNTER 2025-05-25 21:06 | Emergency (ER) | payer MEDICAID ==
[2025-05-25] MEDS: Ondansetron 4 MG/2 ML SDV IVPUSH ONE (21:48)
[2025-05-25 21:56] LABS: BASOPHILS ABSOLUTE AUTO 0.15 K/uL (0.00-0.10); BASOPHILS PERCENT AUTO 1.0 % (0.1-1.3); EOSINOPHILS ABSOLUTE AUTO 0.24 K/uL (0.00-0.40); EOSINOPHILS PERCENT AUTO 1.7 % (0.0-5.4); IMMATURE GRAN PERCENT AUTO 0.7 % (0.0-0.7); LYMPHOCYTES ABSOLUTE AUTO 6.24 K/uL (0.8-3.3); LYMPHOCYTES PERCENT AUTO 43.3 % (11.4-47.7); MONOCYTES ABSOLUTE AUTO 1.01 K/uL (0.20-0.90); MONOCYTES PERCENT AUTO 7.0 % (3.3-12.6); NEUTROPHILS ABSOLUTE AUTO 6.66 K/uL (1.0-7.6); NEUTROPHILS PERCENT AUTO 46.3 % (40.0-78.1); PLATELET COUNT,PLT 260 K/uL (130-375); RED BLOOD CELL COUNT 6.06 M/uL (3.77-5.24); WHITE BLOOD CELL COUNT,WBC 14.4 K/uL (3.2-11.0)
[2025-05-25 21:59] LABS: IMMATURE GRAN ABSOLUTE AUTO 0.10 K/uL (0.00-0.23)
[2025-05-25 22:20] LABS: A/G RATIO 0.9 (1.2-2.2); ALANINE AMINOTRANSFERASE,ALT 36 U/L (12-78); ASPARTATE AMNIOTRANSFERASE,AST 49 U/L (15-37); BILIRUBIN TOTAL 0.9 mg/dL (0.2-1.0); BLOOD UREA NITROGEN,BUN 26 mg/dL (7-18); CARBON DIOXIDE,CO2 28 mmol/L (21-32); CHLORIDE,CL 99 mmol/L (100-108); CREATININE 1.1 mg/dL (0.6-1.0); ESTIMATED GFR 62 mL/min (>60); GLUCOSE RANDOM 102 mg/dL (74-106); POTASSIUM,K 4.4 mmol/L (3.6-5.2); PROTEIN TOTAL,TP 7.1 g/dL (6.4-8.2); SODIUM,NA 136 mmol/L (140-148); TROPONIN I HIGH SENSITIVITY 16.9 pg/mL (<=60.3)
[2025-05-25] MEDS: Iopamidol 755 Mg/ML 100 ML Bottle IV SCH (23:11)
[2025-05-26 00:14] VITALS: BP 111/69; PULSE 105
== END 2025-05-26 00:12 | disposition home or self-care (01) ==
LOC: JP.ED 21:06
DX: R07.9 Chest pain, unspecified (principal); I27.20 Pulmonary hypertension, unspecified; I50.9 Heart failure, unspecified; Z88.0 Allergy status to penicillin; Z88.8 Allergy status to other drugs, medicaments and biological substances; Z88.2 Allergy status to sulfonamides; Z79.899 Other long term (current) drug therapy
CPT/HCPCS: 36415; 71045; 71275; 80053; 84484; 85025; 85379; 93005; 96374; 99285; J2405; Q9967

== ENCOUNTER 2025-06-01 00:15 | Emergency (ER) | payer MEDICAID ==
[2025-06-01 00:27] VITALS: BP 133/90; PULSE 111
[2025-06-01] MEDS: Ketorolac 30 MG/ML SDV IM ONE (00:44)
[2025-06-01] MEDS: Acetaminophen/HYDROcodone 325-5 MG Tab PO ONE (01:19)
== END 2025-06-01 01:28 | disposition home or self-care (01) ==
LOC: JP.ED 00:15
DX: L03.113 Cellulitis of right upper limb (principal); I27.20 Pulmonary hypertension, unspecified; I50.9 Heart failure, unspecified; Z88.2 Allergy status to sulfonamides; Z88.8 Allergy status to other drugs, medicaments and biological substances; Z88.0 Allergy status to penicillin; Z79.899 Other long term (current) drug therapy
CPT/HCPCS: 73080; 96372; 99283; A9270; J1885